=== PATIENT | male | born 1970 | race Caucasian/White ===

== ENCOUNTER 2018-11-16 09:31 | Day surgery (SDC) | payer BC ==
[2018-11-13 15:05] VITALS: BMI 34.2
[2018-11-16] MEDS ORDERED: Fentanyl 100 MCG/2 ML VIAL ONE ×2 (10:22→13:11)
[2018-11-16] MEDS ORDERED: Bupivacaine PF 0.5% 30 ML VIAL ONE (10:51)
--- NOTE | 2018-11-16 13:37 | OP ---
DATE OF PROCEDURE: 11/16/2018 PREOPERATIVE DIAGNOSIS: Bunion, right foot. POSTOPERATIVE DIAGNOSIS: Bunion, right foot. PROCEDURE PERFORMED: Bunionectomy with first metatarsal osteotomy, right foot. ANESTHESIA: Local with monitored anesthetic care. HEMOSTASIS: Pneumatic tourniquet about the right ankle at 250 mmHg. ESTIMATED BLOOD LOSS: None. MATERIALS: 1. Horacio Biomet 2.5 mm headless compression screw, 24 mm in length. 2. 2-0 Vicryl. 3. 4-0 Vicryl. 4. 3-0 nylon. INJECTABLES: 10 mL of 0.5% Marcaine plain preoperatively. COMPLICATIONS: None. DESCRIPTION OF PROCEDURE: The patient was brought to the operative suite, placed supine on the operative table. A time-out was performed identifying correct patient, procedure, and operative site. A well-padded tourniquet was placed about the right ankle. The foot was prepped and draped in an aseptic manner. Tourniquet was raised to 250 mmHg. A 6-cm linear longitudinal incision was made just medial to the extensor hallucis longus tendon extending just distal to the first metatarsophalangeal joint. Sharp and blunt dissection through subcutaneous tissue down to the capsule and periosteum, avoiding vital structures, ligated bleeders as necessary. Capsular and periosteal incision were made between the skin incision over the dorsal aspect of the first metatarsal and base of the proximal phalanx. Capsule and periosteum were reflected away from the head of the first metatarsal. Medial eminence was resected with power saw. Lateral release was performed in the first intermetatarsal space, releasing the fibular sesamoidal ligament and adductor hallucis tendon. An osteotomy was made, V-shaped osteotomy from medial to lateral with longer plantar arm. Capital fragment was shifted laterally, reducing the deformity to adequate position. The osteotomy was fixated with a 2.5 mm screw. The medial aspect of the first metatarsal head was remodeled with a power saw. There was still some residual hallux valgus deformity at this time, so a medial capsulorrhaphy was performed, getting the toe to adequate reduced position. The wound was irrigated with sterile saline. Capsule was repaired with 2-0 Vicryl, subcu with 4-0 Vicryl, and skin with 3-0 nylon. Bandage applied including Xeroform gauze, roll gauze, and Lane bandage. The tourniquet was released and immediate hyperemia to the distal aspect of all toes. The patient tolerated the procedure and anesthesia well, was transferred out of the suite. Vital signs stable and neurovascular status intact to the right lower extremity. We kept for a short period of monitoring and discharged home with aftercare instructions and to follow up with me in 1 week. Job ID: [id number]
--- NOTE | 2018-11-16 14:47 | RAD ---
RIGHT FOOT 2 VIEWS: Date: 11/16/18 HISTORY: Postop bunionectomy follow-up. FINDINGS/IMPRESSION: Bunionectomy changes are noted involving the distal first metatarsal with osteotomy change. A metalli c screw transfixed the distal first metatarsal. 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 There is mild surrou nding soft tissue swelling with some tiny gas pockets in the surrounding soft tissues, presumably pos top. Exam otherwise unremarkable. POS: [facility]
[2018-11-16] MEDS ORDERED: ePHEDrine 50 MG/ML VIAL ONE (17:07)
[2018-11-16] MEDS ORDERED: Lidocaine 1% PF 5 ML VIAL ONE (17:07)
[2018-11-16] MEDS ORDERED: Ketorolac Tromethamine 30 MG/ML VIAL ONE (17:07)
[2018-11-16] MEDS ORDERED: Ondansetron PF 4 MG/2 ML Vial ONE (17:07)
[2018-11-16] MEDS ORDERED: PROPOFOL 200 MG/20 ML VIAL ONE (17:07)
== END 2018-11-16 14:15 | disposition home or self-care (01) ==
LOC: SDC 09:31
PROVIDERS: ATTEND Podiatrist Foot & Ankle Surgery
PROC: 0QBQ0ZZ Excision of Right Toe Phalanx, Open Approach (ICD-10-PCS; principal; 2018-11-16)
PROC: 0QSN04Z Reposition Right Metatarsal with Internal Fixation Device, Open Approach (ICD-10-PCS; principal; 2018-11-16)
DX: M21.611 Bunion of right foot (principal); Z79.1 Long term (current) use of non-steroidal anti-inflammatories (NSAID)
CPT/HCPCS: J1885; J2001; J2405; J2704; J3010; J3490; S0020

== ENCOUNTER 2019-04-04 09:29 | Outpatient (CLI) | payer BC | END 2019-04-04 09:30 | disposition home or self-care (01) | LOC: EEG 09:29 | DX: R29.818 Other symptoms and signs involving the nervous system (principal) | CPT/HCPCS: 95816 ==